=== PATIENT | male | born 1950 | race Caucasian/White ===

== ENCOUNTER 2022-10-26 10:55 | Outpatient (RCR) | payer MEDICARE, OTHER, SELFPAY | END 2022-11-23 13:54 | disposition home or self-care (01) | LOC: PT 10:55 | DX: M25.562 Pain in left knee (principal); M25.662 Stiffness of left knee, not elsewhere classified; Z98.890 Other specified postprocedural states | CPT/HCPCS: 97110; 97112; 97140; 97530 ==

== ENCOUNTER 2022-10-26 10:55 | Outpatient (RCR) | payer MEDICARE, OTHER, SELFPAY | END 2023-05-03 14:59 | disposition home or self-care (01) | LOC: OT 10:55 | DX: M25.562 Pain in left knee (principal); M25.662 Stiffness of left knee, not elsewhere classified; Z98.890 Other specified postprocedural states; R53.81 Other malaise | CPT/HCPCS: 97110; 97112; 97140; 97530 ==